=== PATIENT | male | born 1970 | race African-American/Black ===

== ENCOUNTER 2024-01-10 13:46 | Outpatient (REF) | payer MEDICARE, OTHER, SELFPAY | END 2024-01-10 13:47 | disposition home or self-care (01) | LOC: HO.SH 13:46 | PROVIDERS: Visit Provider Family Medicine | DX: Z01.118 Encounter for examination of ears and hearing with other abnormal findings (principal); H90.3 Sensorineural hearing loss, bilateral | CPT/HCPCS: 92557 ==

== ENCOUNTER 2024-02-15 14:35 | Outpatient (REF) | payer SELFPAY | END 2024-02-15 14:36 | disposition home or self-care (01) | LOC: HO.HAP 14:35 | PROVIDERS: Visit Provider Internal Medicine | DX: Z13.89 Encounter for screening for other disorder (principal) ==

== ENCOUNTER 2024-03-20 15:15 | Outpatient (REF) | payer SELFPAY ==
--- NOTE | 2024-03-20 16:12 | MHC.AU.HA1 ---
Hearing Aid Evaluation Date of Visit: 03/20/24 Historical Information: Description of Hearing: Mild sensorineural hearing loss Au. Current personal amplification information, if applicable: None. Summary: Here for hearing aid consult. Has been in for consult recently but impressions not taken due to occluding cerumen, needed to finalize performance level decision. Laure reports wax has been removed. Reviewed performance levels and options. Selected Active level, CIC. Not interested in bluetooth capability or rechargeable. Otoscopy reveals non occluding cerumen Au, impressions taken without incidence. Laure was not prepared to pay the consult fee today. 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 Hearing Aid Prescription: Based on the individual?s shared listening needs, communication environments, dexterity, desire for connectivity, and personal preferences, the following prescription for amplification has been made: Right ear: Make, Model, Color: [employer]on Own 2 CIC, dark brown Battery Size: 312: Type of Earmold/Dome/CShell/SlimTip: Left ear: Make, Model, Color: [employer] Own 2 CIC, dark brown Battery Size: 312 Type of Earmold/Dome/CShell/SlimTip: Plan of Care: Patient wishes to purchase hearing aids as prescribed Action Taken/Action Needed: Earmold Impressions Taken Medical Clearance to be requested from PCP/ENT Hearing Instrument Fitting to be scheduled when materials arrive Comments: Return to pay consult fee. Primary Diagnosis: H90.3 Bilateral Sensorineural Hearing Loss Signature: Provider: Lori Fernandes, CCC-A
--- NOTE | 2024-03-20 16:13 | MHC.AU.MED ---
Medical Clearance for Hearing Instrumentation Date: 03/20/24 Patient Name: Laure Mauricio Date of : 1970 Primary Care Provider: Referring Provider: Juan Black MD We have seen your patient on 03/20/24 and have determined that they are a candidate for amplification (See accompanying report). Specifically, they would benefit from: Hearing aid use in both ears There is a statute that addresses Medical Evaluation Requirements prior to fitting a patient with a hearing aid. According to [place] statute 265 CMR:6.03(1), (a) General. Except as provided in 265 CMR 6.03(1)(b), a behavioral health director shall not sell a hearing aid unless the prospective user has presented to the behavioral health director a written statement signed by a licensed physician that states that the patient's hearing loss has been medically evaluated and the patient may be considered a candidate for a hearing aid. The medical evaluation must have taken place within the preceding six months. Please note: Due to the [place] Statute referenced above, we cannot accept a signature other than that of a licensed physician. CLAIM SPECIALIST and PA signatures cannot be accepted. I am in agreement with the above recommendation. There is no medical contraindication for hearing instrumentation. Physician Signature Date Physician Name (Printed)
== END 2024-03-20 15:16 | disposition home or self-care (01) ==
LOC: HO.HAP 15:15
PROVIDERS: Visit Provider Internal Medicine
DX: Z46.1 Encounter for fitting and adjustment of hearing aid (principal); H90.3 Sensorineural hearing loss, bilateral
CPT/HCPCS: 92590